=== PATIENT | male | born 2000 | race Two or more races ===

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

== ENCOUNTER 2021-06-09 17:42 | Emergency (ER) | payer MEDICAID, OTHER ==
[~2021-06-09] VITALS: Ht 180.3 cm; Wt 65.8 kg
[2021-06-09] MEDS ORDERED: ALBUTEROL SULFATE 2.5 MG/3 ML NEBU NEB ONE (20:30)
--- NOTE | 2021-06-09 20:30 | NUR ---
Dr. Disla at bedside for MSE.
--- NOTE | 2021-06-09 20:54 | NUR ---
RT at bedside.
[2021-06-09] MEDS ORDERED: ALBUTEROL SULFATE 2.5 MG/3 ML NEBU ONE (21:01)
[2021-06-09 21:57] LABS: HEMATOCRIT 43.7 % (36.7-47.1); MEAN CORPUSCULAR HEMOGLOBIN 30.4 uug (23.8-33.4); MEAN CORPUSCULAR VOLUME 88.9 fL (73.0-96.2); PLATELET COUNT (AUTO) 229 K/uL (152-348)
[2021-06-09 22:12] LABS: CREATININE 1.1 mg/dL (0.6-1.3); POTASSIUM 3.5 mmol/L (3.5-5.1)
[2021-06-09] MEDS ORDERED: ALBU18HF2 INH (22:31)
[2021-06-09] MEDS ORDERED: IBUP-1955 PO (22:31)
--- NOTE | 2021-06-09 22:36 | NUR ---
Patient discharged to home in stable condition. Written and verbal after care instructions given. Patient verbalizes understanding of instructions. Stressed follow up or return to ER for worsening s/s.
[2021-06-09 22:38] VITALS: BP 125/75
== END 2021-06-09 22:38 | disposition home or self-care (01) ==
LOC: ER 17:49
DX: J45.901 Unspecified asthma with (acute) exacerbation (principal); S29.011A Strain of muscle and tendon of front wall of thorax, initial encounter; Y93.B9 Activity, other involving muscle strengthening exercises; Y92.9 Unspecified place or not applicable
CPT/HCPCS: 36415; 71045; 85025; 93005; 94640; A4663

== ENCOUNTER 2021-07-21 10:36 | Emergency (ER) | payer MEDICAID ==
[~2021-07-21] VITALS: Ht 177.8 cm; Wt 70.3 kg
[~2021-07-21 10:36] MED LIST: ALBU18HF2 INH; IBUP-1955 PO
[2021-07-21] MEDS ORDERED: BENZONATATE 100 MG CAPSULE PO ONE (11:30)
--- NOTE | 2021-07-21 11:59 | NUR ---
[employer] assumes care: received patient is AOX4, calm, respiration:easy with congestive coughing, subjective fever, headaches and generalized malaise for 4 days, currently on continuous SPO2 monitor=99%-100% room air, afebrile@this time. Isolation maintained in ER room 3.
[2021-07-21] MEDS ORDERED: BENZONATATE 100 MG CAPSULE ONE (12:08)
[2021-07-21] MEDS ORDERED: BENZ200C53 PO (13:03)
--- NOTE | 2021-07-21 13:16 | NUR ---
Patient discharged to home in stable condition with brisk steady gait. Written and verbal after care instructions given to patient. Patient verbalized understanding and compliance of instructions. Stressed follow up with primary doctor or return to ER for worsening s/s. Copies of the results for COVID test & rapid flu test were given to patient.
== END 2021-07-21 13:16 | disposition home or self-care (01) ==
LOC: ER 10:56
DX: B34.9 Viral infection, unspecified (principal); R05.9 Cough, unspecified; Z20.822 Contact with and (suspected) exposure to COVID-19
CPT/HCPCS: 87400; A4663